=== PATIENT | female | born 1940 | race Caucasian/White ===

== ENCOUNTER 2021-04-10 12:41 | Inpatient (IN) | payer OTHER ==
[~2021-04-10] VITALS: Ht 152.4 cm; Wt 76.2 kg
[2021-04-10] MEDS ORDERED: LISINOPRIL30 MG PO (13:52)
[2021-04-10] MEDS ORDERED: METOPROLOL SUCC25 M2 PO (13:53)
[2021-04-10] MEDS ORDERED: VITAMIN D3125 MCG PO (13:55)
[2021-04-10] MEDS ORDERED: LOVASTATIN20 MG PO (13:55)
[2021-04-10] MEDS ORDERED: TYLENOL325 M2 PO (14:06)
[2021-04-10] MEDS ORDERED: ALENDRONATE SOD70 M1 PO (14:07)
[2021-04-10] MEDS ORDERED: ASPIRIN CHEWABL81 MG PO (14:08)
[2021-04-10] MEDS ORDERED: COLACE100 MG PO (14:09)
[2021-04-10] MEDS ORDERED: HEARTBURN RELIE20 MG PO (14:10)
[2021-04-10] MEDS ORDERED: FLUVOXAMINE100 MG PO (14:11)
[2021-04-10 16:18] VITALS: BP 178/78
[2021-04-10 19:43] VITALS: BP 156/72
[2021-04-11 01:04] LABS: BILIRUBIN Negative (Negative); BLOOD Trace-Lysed (Negative); CLARITY Clear (Clear); COLOR Yellow (Yellow); GLUCOSE Negative (Negative); KETONE Negative (Negative); LEUKO ESTERASE Trace (Negative); NITRITE Negative (Negative); UROBILINOGEN 0.2 E.U./dl (0.0-1.0)
[2021-04-11 01:25] LABS: BACTERIA TRACE
[2021-04-11 06:50] LABS: BASO % 0.4 % (0.0-1.0); EOS # 0.5 10*3/uL (0.0-0.4); EOS % 4.6 % (1.0-4.0); HEMATOCRIT 36.6 % (37.0-47.0); LYMPH # 3.2 10*3/uL (1.3-4.4); LYMPH % 29.5 % (27.0-41.0); MEAN CELL VOLUME 91.7 fl (81.0-99.0); MEAN CORPUSCULAR HGB 29.8 pg (27.0-31.0); MEAN CORPUSCULAR HGB CONC 32.5 g/dl (33.0-37.0); MEAN PLATELET VOLUME 11.1 fl (9.6-12.3); MONO # 0.8 10*3/uL (0.1-1.0); MONO % 7.3 % (3.0-9.0); NEUT # 6.3 10*3/uL (2.3-7.9); PLATELET COUNT AUTOMATED 220 10*3/uL (130-400); RED BLOOD COUNT 3.99 10*6/uL (4.10-5.10); RED CELL DISTRI WIDTH 11.8 % (0-14.5); WHITE BLOOD COUNT 10.8 10*3/uL (4.8-10.8)
[2021-04-11 06:59] LABS: CHLORIDE 107 mmol/L (98-107); POTASSIUM 4.2 mmol/L (3.5-5.1); SODIUM 139 mmol/L (136-145)
[2021-04-11 07:41] LABS: ALBUMIN 3.2 gm/dl (3.1-4.5); ALKALINE PHOSPHATASE 47 U/L (45-117); BUN 14 mg/dl (7-24); CHOLESTEROL 142 mg/dL (<200); LDL CHOLESTEROL 51 mg/dL (9-159); SGOT/AST 16 IU/L (3-35); SGPT/ALT 23 U/L (12-78); TOTAL PROTEIN 6.9 gm/dL (6.4-8.2); TRIGLYCERIDES 147 mg/dl (<150)
[2021-04-11 07:57] VITALS: BP 141/62
[2021-04-11 09:03] LABS: VITAMIN D, 25-HYDROXY 30.4 ng/mL (30-100)
[2021-04-12 07:25] VITALS: BP 127/52
[2021-04-13 19:30] VITALS: BP 139/85
[2021-04-14 20:00] VITALS: BP 134/58
[2021-04-15 08:00] VITALS: BP 153/64
[2021-04-15 20:00] VITALS: BP 144/58
[2021-04-16 07:56] VITALS: BP 131/67
[2021-04-16 20:47] VITALS: BP 157/77
[2021-04-17 08:00] VITALS: BP 135/64
[2021-04-17 20:00] VITALS: BP 126/66
[2021-04-18 07:53] VITALS: BP 119/62
[2021-04-18 20:00] VITALS: BP 116/58
[2021-04-19 07:22] VITALS: BP 125/60
[2021-04-19 19:50] VITALS: BP 116/59
[2021-04-20 07:59] VITALS: BP 118/64
[2021-04-20 20:00] VITALS: BP 142/70
[2021-04-21 07:46] VITALS: BP 143/66
[2021-04-21] MEDS ORDERED: MEMANTINE HCL10 MG PO (08:47)
[2021-04-21] MEDS ORDERED: FLUVOXAMINE50 MG PO (08:47)
[2021-04-21] MEDS ORDERED: PALIPERIDONE ER3 MG PO (08:47)
[2021-04-21] MEDS ORDERED: RIVASTIGMINE1 EAC2 T (08:47)
== END 2021-04-21 14:20 | DRG 883 ==
LOC: 3N 12:41
PROVIDERS: ADMIT Psychiatry & Neurology Psychiatry; ATTEND Psychiatry & Neurology Psychiatry
DX: F63.81 Intermittent explosive disorder (principal); F33.2 Major depressive disorder, recurrent severe without psychotic features; I82.501 Chronic embolism and thrombosis of unspecified deep veins of right lower extremity; M19.90 Unspecified osteoarthritis, unspecified site; M81.0 Age-related osteoporosis without current pathological fracture; M62.81 Muscle weakness (generalized); Z20.822 Contact with and (suspected) exposure to COVID-19; K21.9 Gastro-esophageal reflux disease without esophagitis; G31.84 Mild cognitive impairment of uncertain or unknown etiology; R26.2 Difficulty in walking, not elsewhere classified; E78.5 Hyperlipidemia, unspecified; R00.1 Bradycardia, unspecified; D64.9 Anemia, unspecified; R73.9 Hyperglycemia, unspecified; F42.9 Obsessive-compulsive disorder, unspecified; Z68.32 Body mass index [BMI] 32.0-32.9, adult; Z86.16 Personal history of COVID-19; Z90.710 Acquired absence of both cervix and uterus; Z79.899 Other long term (current) drug therapy